=== PATIENT | female | born 1945 | race Hispanic/Latino ===

== ENCOUNTER 2017-04-19 13:49 | Outpatient (CLI) | payer MEDICARE ==
--- NOTE | 2017-04-19 14:55 | XRay Report ---
XRAY LEFT SHOULDER THREE VIEWS: 04/19/17 13:49:00 CLINICAL: Left shoulder pain. FINDINGS: No fracture or dislocation. Glenohumeral joint osteoarthritis with a large inferior osteophyte and a subchondral cyst in the glenoid. The acromioclavicular joint is normal. Normal soft tissues. IMPRESSION: Glenohumeral joint osteoarthritis.
== END 2017-04-19 13:50 | disposition home or self-care (01) ==
LOC: SPVIMAG 13:49
PROVIDERS: ATTEND Orthopaedic Surgery Sports Medicine
DX: M19.012 Primary osteoarthritis, left shoulder (principal); M25.812 Other specified joint disorders, left shoulder